=== PATIENT | female | born 1940 | race Caucasian/White ===

== ENCOUNTER 2018-12-05 08:34 | Emergency (ER) | payer MEDICARE, SELFPAY ==
[2018-12-05] VITALS (7 sets, daily range): BP systolic 118–130; BP diastolic 69–90; PULSE 54–58; RESP 17–18; TEMP 36.6–36.8; O2SAT 96–99; BMI 40.2
--- NOTE | 2018-12-05 08:49 | RAD_ITS ---
STUDY: X-RAY - RIGHT FOOT CLINICAL: Female, 78 years old. Soft tissue swelling and erythema overlying the second and third toes. TECHNIQUE: 3 view(s) of the foot. COMPARISON: None. FINDINGS: There is a plantar calcaneal spur. Normal visualized subtalar, talonavicular, calcaneocuboid, tarsal and tarsometatarsal articulations. Normal metatarsi. Normal metatarsophalangeal joint of the great toe. Normal tibial and fibular sesamoid bones. Normal interphalangeal joint of the great toe. Normal phalanges of the great toe. Normal second through fifth metatarsophalangeal joints. Normal interphalangeal joints and phalanges of the lesser toes. Tiny linear metallic densities are seen in the soft tissues overlying the lateral aspect of the distal phalanx of the great toe as well as the medial aspect of the middle phalanx of the third toe. These have the appearance of tiny needles. RAD/Foot min 3 Views IMPRESSION: Soft tissue swelling. Findings in keeping with tiny foreign bodies most likely representing needle tips in the soft tissues overlying the lateral aspect of the distal phalanx of the great toe as well as the medial aspect of the middle phalanx of the third toe. Plantar spur. Electronically Signed: Gary Dutta, at 9:50 EDT , Service support ,
--- NOTE | 2018-12-05 08:50 | ED.VIS.GEN ---
History of Present Illness Chief Complaint: Cellulitis Detail of Chief Complaint: Foot redness Informant: Patient, Family Onset: Yesterday Current Severity: Moderate Maximum Severity: Moderate Narrative: Patient presents with redness and swelling to her right foot. She states she first noted it yesterday. Daughter said she checked her mom's foot last night and had redness of the top of her foot and up onto the lower leg. Swelling and erythema seem to be slightly improved this morning. Daughter does note that there was a pus pocket between her toes that ruptured. Patient is not a diabetic. She denies any recent injury. Past Medical History - Allergies and Home Meds Allergies/Adverse Reactions: Allergies NSAIDS (Non-Steroidal Anti-Inflamma Allergy (Verified 12/05/18 08:38) Anaphylaxis acetaminophen [From Darvocet-N] Adverse Reaction (Verified 12/05/18 08:38) Vomiting meperidine [From Demerol] Adverse Reaction (Verified 12/05/18 08:38) Vomiting propoxyphene [From Darvocet-N] Adverse Reaction (Verified 12/05/18 08:38) Vomiting Primary Care Physician: Dee Arrieta MD [Primary Care Provider] - Prior records reviewed: Yes Past Medical History: - - Reviewed Lives: Alone Review of Systems General: Denies: Chills, Fever Eyes: Denies: Visual changes - bilaterally ENT: Denies: Bilateral ear pain Cardiovascular: Denies: Chest pain Respiratory: Denies: Dyspnea Gastrointestinal: Denies: Abdominal pain, Nausea, Vomiting, Diarrhea Musculoskeletal: Reports: Extremity Pain Skin: Reports: Wounds Neurological: Denies: Headache Hematologic: Denies: Easy bruising, Easy bleeding Allergy: Denies: Uticaria Physical Exam Vital Signs/Narrative: Vital Signs Temp Pulse Resp BP Pulse Ox 12/05/18 08:46 98.2 F 55 L 17 130/90 H 96 12/05/18 08:38 98.2 F 55 L 17 130/90 H 96 Inital Vital Signs reviewed: Yes General: Well nourished, Well developed Head: Normocephalic ENT: Moist mucous membranes Neck: Supple, Nontender Cardiovascular: Regular rate, Regular rhythm Respiratory: No distress, CTA bilaterally Abdomen: Soft, Nontender Extremities: - - Erythema and mild edema to the right third toe with erythema across the top of the foot with mild lymphangitic streaking on the lower leg. There is a small open wound on the medial side of the third toe. No abscesses noted. Good cap refill noted throughout. Skin: - - As above Neurological: Alert, Oriented x3 Psychological: Normal affect Diagnostic/Tx/Re-eval Impressions Foot X-Ray 12/05/18 08:49 IMPRESSION: Soft tissue swelling. Findings in keeping with tiny foreign bodies most likely representing needle tips in the soft tissues overlying the lateral aspect of the distal phalanx of the great toe as well as the medial aspect of the middle phalanx of the third toe. Plantar spur. Electronically Signed: Gary Dutta, at 9:50 EDT , Service support , 12/05/18 08:49 Foot min 3 Views [RAD] Stat Laboratory Results 12/05/18 12/05/18 09:00 09:00 WBC 8.1 RBC 3.75 L Hgb 11.2 L Hct 35.0 L MCV 93.3 MCH 29.9 MCHC 32.0 RDW Std Deviation 45.8 H RDW Coeff of Izabela 13.4 Plt Count 227 MPV 10.1 Immature Gran % (Auto) 0.400 Neut % (Auto) 54.1 Lymph % (Auto) 31.8 Kingfisher % (Auto) 9.7 Eos % (Auto) 3.5 Baso % (Auto) 0.5 Absolute Neuts (auto) 4.4 Absolute Lymphs (auto) 2.56 Nucleated RBC % 0 Sodium 139 Potassium 4.0 Chloride 111 H Carbon Dioxide 22.0 Anion Gap 6 BUN 28 H Creatinine 1.60 H Estim Creat Clear Calc 42.69 Est GFR (MDRD) Af Amer 40 L Est GFR (MDRD) Non-Af 33 L BUN/Creatinine Ratio 17.5 Glucose 101 Calcium 9.3 - Medical Decision Making Patient received a dose of IV clindamycin. Blood work here is unremarkable. Patient's x-rays do show evidence of foreign body in both the great toe and the third toe. I questioned her about this. She does not remember any injury, but daughter states she did recently take sewing. Patient Has Neuropathy. On palpation over the areas of known foreign body, I was able to feel the ends of needles. Secondary to her neuropathy I was able to grasp the end of the needles with a pair of forceps and pull them both out. Wounds were cleansed and dressed. I will speak with podiatry to help arrange close follow-up. ED Disposition - Plan for ED Patient: Disposition: Home or Assisted Living Diagnosis: Cellulitis of right foot, Soft tissues foreign body Instructions: Cellulitis Prescriptions: Amox/Clavulanate Tablet [Augmentin Tablet] 875 mg PO Q12H #20 tablet Referrals: Kwame Dodson DPM [STAFF PHYSICIAN] - 2 Days for wound check
[2018-12-05 09:20] LABS: Absolute Lymphocyte Count 2.56 X10^3/uL (0.83-4.51); Absolute Neutrophil Count 4.4 X10^3/uL (2.0-7.7); Basophil# 0.04 X10^3/uL; Basophil% 0.5 % (0-1); Eosinophil# 0.28 X10^3/uL; Eosinophils% 3.5 % (0-5); Hemoglobin 11.2 g/dL (12.0-15.0); Lymphocyte # 2.56 X10^3/ul (4.0); Lymphocyte % 31.8 % (19-41); Mean Corpuscular Hgb 29.9 pg (27.0-32.0); Mean Corpuscular Volume 93.3 fL (81-99); Mean Platelet Vol. 10.1 fl (6.2-12.0); Monocyte# 0.78 X10^3/uL; Monocyte% 9.7 % (0-10); NRBC Flagged by Analyzer 0 % (0-5); Neutrophil # 4.36 X10^3/uL (2.7-7.7); Neutrophil % 54.1 % (47-70); Platelet Count 227 K/mm3 (150-450); RBC Distribution Width CV 13.4 % (11.6-14.6); RBC Distribution Width SD 45.8 fl (35.1-43.9); Red Blood Count 3.75 M/mm3 (4.2-5.4); White Blood Count 8.1 K/mm3 (4.4-11.0)
[2018-12-05 09:32] LABS: Anion Gap 6 (5-15); BUN 28 mg/dL (7-18); BUN/Creat Ratio 17.5 RATIO (10-20); Calcium,Total 9.3 mg/dL (8.5-10.1); Chloride 111 mmol/L (98-107); EST Glomerular Filtration Rate 33 mL/min (>60); Est Glom Filt Rate - Afr Amer 40 mL/min (>60); Estimated Creatinine Clearance 42.69 ml/min; Glucose 101 mg/dL (74-106); Sodium Level 139 mmol/L (136-145)
== END 2018-12-05 11:36 | disposition home or self-care (01) ==
PROVIDERS: Emergency Provider Emergency Medicine; Family Provider Internal Medicine; PCP Internal Medicine
DX: L03.115 Cellulitis of right lower limb (principal); Z88.5 Allergy status to narcotic agent; Z88.6 Allergy status to analgesic agent
CPT/HCPCS: 73630; 80048; 85025; 99285

== ENCOUNTER → 2018-12-06 17:27 | Outpatient (CLI) | payer MEDICARE, SELFPAY ==
[2018-12-05 08:38] VITALS: BMI 40.2
== END ==
PROVIDERS: Family Provider Internal Medicine; PCP Internal Medicine; Referring Provider Podiatrist; Visit Provider Podiatrist
DX: L03.115 Cellulitis of right lower limb (principal)
CPT/HCPCS: 87070; 87075; 87205

== ENCOUNTER 2020-06-04 16:54 | Outpatient (RCR) | payer MEDICARE, SELFPAY ==
[2018-12-05 08:38] VITALS: BMI 40.2
[2020-06-04] MEDS: COVID-19 VACC, MRNA(PFIZER)/PF 30 MCG/0.3 ML SYRINGE IM (14:14)
[2020-06-25] MEDS: COVID-19 VACC, MRNA(PFIZER)/PF 30 MCG/0.3 ML SYRINGE IM (13:48)
== END 2020-06-04 23:59 ==
LOC: IMMUN 16:54
PROVIDERS: PCP Internal Medicine; Visit Provider Family Medicine
DX: Z23 Encounter for immunization (principal)
CPT/HCPCS: 0001A; 0002A; 91300

== ENCOUNTER → 2020-07-17 07:13 | Outpatient (CLI) | payer MEDICARE, SELFPAY ==
[2018-12-05 08:38] VITALS: BMI 40.2
--- NOTE | 2020-07-17 09:38 | STRESSREP_ITS ---
Stress Test Report Date: 07-17-2020 Procedure: Pharmacologic stress nuclear imaging study Indications: Palpitations; dizziness; CAD; PCI Consent: Per the patient Procedure: The patient underwent pharmacologic (Regadenoson 0.4mg ) evaluation with a peak heart rate of 107 beats per minute (75%predicted maximal heart rate) and a peak blood pressure of 140/72 mmHg. The baseline ECG demonstrated normal sinus rhythm; low voltage QRS. The peak pharmacologic ECG demonstrated no obvious ECG changes. There was an isolated PVC during recovery. There was no complaint of chest discomfort during pharmacologic infusion or recovery. The examination was discontinued secondary to completion of protocol. Impression: 1. Pharmacologic (Regadenoson) evaluation 2. Peak pharmacologic ECG with no obvious ECG changes. 3. There was an isolated PVC during recovery. 4. Nuclear images pending Myocardial perfusion imaging study: Technique: The patient was injected with 11.2 millicuries of technetium 99m Cardiolite and subsequently rest SPECT Cardiolite nuclear imaging was obtained in the horizontal long, vertical long, and short axis views. The patient underwent pharmacologic (Regadenoson) evaluation with a peak heart rate of 107 beats per minute (75% percent predicted maximal heart rate) and a peak blood pressure of 140/72 mmHg. The patient was injected with 33.0 millicuries of technetium 99m Cardiolite and subsequently stress SPECT Cardiolite nuclear imaging was obtained in the horizontal long, vertical long, and short axis views. A gated Cardiolite study at peak stress was obtained. Interpretation: Rest and stress SPECT Cardiolite nuclear imaging status post realignment, normalization, and attenuation correction demonstrate relative uniform tracer uptake and myocardial perfusion appearing within normal limits. There is end systolic thickening and brightening. The gated Cardiolite study demonstrates myocardial thickening and inward wall motion. The reported LVEF is 90%. Impression: 1. Rest and stress SPECT Cardiolite nuclear imaging demonstrate relative uniform tracer uptake and myocardial perfusion appearing within normal limits. 2. The gated Cardiolite study reports an LVEF of 90%. This note was generated with [employer] software. It may contain incorrect words, spelling, and punctuation that were not noted in checking the note before signing.
== END ==
PROVIDERS: PCP Internal Medicine; Referring Provider Internal Medicine; Visit Provider Internal Medicine
DX: Z13.6 Encounter for screening for cardiovascular disorders (principal); I25.10 Atherosclerotic heart disease of native coronary artery without angina pectoris; R00.2 Palpitations; R42 Dizziness and giddiness
CPT/HCPCS: 78452; 93017; A9500; A4216; J2785

== ENCOUNTER 2021-05-01 11:59 | Emergency (ER) | payer MEDICARE, SELFPAY ==
[2021-05-01 12:00] VITALS: PULSE 60; RESP 14; TEMP 36.3; O2SAT 100; BMI 32.9
[2021-05-01 12:01] VITALS: BP 219/86
--- NOTE | 2021-05-01 12:14 | CT_ITS ---
STUDY: CT CERVICAL SPINE WITHOUT CONTRAST REASON FOR EXAM: Female, 81 years old. Pain RADIATION DOSAGE (If Supplied By Facility): CTDIvol = ( 32.13 ) mGy, DLP = ( 583.62 ) mGycm TECHNIQUE: High resolution transaxial imaging was performed without contrast material. Sagittal and coronal images were reconstructed. Individualized dose optimization techniques were used for this CT. COMPARISON: None FINDINGS: Normal craniovertebral junction. There is hypertrophy of the transverse ligament of the atlas with mild posterior displacement of the superior and inferior longitudinal fibers of the cruciform ligament, producing minimal ventral thecal sac flattening, but without cervical cord impingement. There are mild degenerative changes in the anterior atlantoaxial articulation. Normal odontoid process. There is straightening of the normal cervical lordosis. Normal vertebral bodies and posterior osseous elements. C2-3: Normal endplates. Normal disc height and morphology. Normal central canal and intervertebral neuroforamina. C3-4: Moderate bilateral facet hypertrophy produces mild bilateral neural foraminal stenosis. 2 mm of anterolisthesis of C3 on C4. No central spinal stenosis. C4-5: Moderate left facet hypertrophy with ankylosis of facet joint. No spinal stenosis or neural foraminal stenosis. C5-6: Mild right facet hypertrophy. No spinal stenosis or neural foraminal stenosis. C6-7: Normal endplates. Normal disc height and morphology. Normal central canal and intervertebral neuroforamina. C7-T1: Normal endplates. Normal disc height and morphology. Normal central canal and intervertebral neuroforamina. Normal visualized soft tissue structures. CT/Spine Cervical without Contras IMPRESSION: Multilevel degenerative changes, as described above. Electronically Signed: Lobo Frances MD at 13:17 EST ,
--- NOTE | 2021-05-01 12:15 | EDS_ITS ---
HPI History of Present Illness HPI Narrative: Patient with past medical history of coronary artery disease, hypertension, presents with left-sided neck and trapezial pain that she has had since . She presents with her daughter who brought her to the hospital because she has been having dull, achy pain that is worse with movement of her neck. It becomes sharp and stabbing. She states when she tried to change her shirt this morning, she had extreme pain on the left side of her neck. She denies any fevers or chills. No trauma. No chest pain or shortness of breath. No other symptoms. Chief Complaint: [facility] Extremity [facility] Medical History Anxiety High cholesterol Hypertension Home Medications duloxetine 60 mg PO DAILY 05/01/21 [History Last Taken Unknown] lisinopril 10 mg PO DAILY 05/01/21 [History Last Taken Unknown] metoprolol succinate 25 mg PO DAILY 05/01/21 [History Last Taken Unknown] oxycodone-acetaminophen [Percocet] 1 tab PO Q6H PRN 3 Days #12 tab 05/01/21 [Rx Last Taken Unknown] simvastatin 20 mg PO DAILY 05/01/21 [History Last Taken Unknown] Allergy/AdvReac Type Severity Reaction Status Date / Time NSAIDS (Non-Steroidal Allergy Anaphylaxis Verified 05/01/21 12:02 Anti-Inflamma acetaminophen AdvReac Vomiting Verified 05/01/21 12:02 [From Darvocet-N] meperidine [From Demerol] AdvReac Vomiting Verified 05/01/21 12:02 propoxyphene AdvReac Vomiting Verified 05/01/21 12:02 [From Darvocet-N] Surgical History Hx of heart artery stent Social History Smoking Status: Never smoker ROS ROS ED ROS Narrative Constitutional: No fever, no chills. HEENT: No sore throat. Positive left-sided neck pain. No loss of vision. No rhinorrhea. Cardiovascular: No chest pain. No palpitations. No pedal edema. Respiratory: No cough, no shortness of breath. Abdominal: No abdominal pain. No nausea. No vomiting. Genitourinary: No dysuria. No hematuria. Musculoskeletal: Left trapezial to shoulder pain. No arthralgias. Neurologic: No headaches. No dizziness. No lightheadedness. Skin: No rash. No change in color. Psychiatric: No depression. No anxiety. EXAM Physical Exam Narrative Exam Narrative: Afebrile. Vital signs noted. HEENT: Normocephalic. Atraumatic. PERRL, EOMI. Neck soft and supple. No point tenderness or step off. Limited range of motion of neck secondary to pain. Worsening pain with turning head to left. Cardiovascular: Regular rate and rhythm. No murmurs, rubs, or gallops appr eciated. Respiratory: No tachypnea. Lungs clear to auscultation bilaterally. Gastrointestinal: Abdomen soft, nontender, with normoactive bowel sounds. No rebound or guarding. Neurological: Awake. Alert. Nonfocal, nonlateralizing. Able to raise arms above head. Skin: No rash. Normal color. No pallor. Musculoskeletal: No pedal edema. Full range of motion extremities. Const Vital Signs: 05/01/21 12:00 05/01/21 12:01 Temperature 97.4 F L Temperature Source Temporal Pulse Rate 60 Respiratory Rate 14 Blood Pressure 219/86 H Blood Pressure Mean 130 Pulse Ox 100 MDM MDM MDM Narrative Medical decision making narrative: I do feel that the patient may have more of a cervical radiculopathy with some component of spinal stenosis given her age. She was given a tramadol for analgesia. I will obtain CT imaging to look for spinal stenosis. Her CT is consistent with spinal stenosis bilaterally at the C3-C4 level. I do feel this is cervical radiculopathy. Her blood pressure was elevated. She was given an extra dose of her metoprolol orally. I feel she can be discharged safely home with follow-up to her primary care physician. Patient and her daughter states that they have a follow-up appointment next week, and 6 days. She was given a prescription for Percocet for 3 days and was told of the risk of drowsiness, nausea and vomiting, constipation, and addiction. Disposition is discharged home in stable condition. Discharge Plan Triage Chief Complaint: Upper Extremity Injury ED Provider: Delgado Patel Dx/Rx/DC Orders Clinical Impression: Acute neck pain, Spinal stenosis Instructions: Taking Opioid Medicines, ED Neck Pain Prescriptions: New oxycodone-acetaminophen [Percocet] 5-325 mg tablet 1 tab PO Q6H PRN (Reason: pain) 3 Days Qty: 12 RF: 0 No Action simvastatin 20 mg tablet 20 mg PO DAILY RF: 0 lisinopril 10 mg tablet 10 mg PO DAILY RF: 0 metoprolol succinate 25 mg tablet extended release 24 hr 25 mg PO DAILY RF: 0 duloxetine 60 mg capsule,delayed release(DR/EC) 60 mg PO DAILY RF: 0 Primary Care Provider: Dee Arrieta Referrals: Dee Arrieta MD [Primary Care Provider] - As soon as possible Disposition Disposition: Home, Self Care Discharge Date/Time: 05/01/21 14:02
[2021-05-01] MEDS: traMADol 50 MG Tablet PO (12:36)
[2021-05-01 13:45] VITALS: BP 191/73
[2021-05-01] MEDS: Metoprolol(XL)Succ 25 MG Tablet PO (13:58)
== END 2021-05-01 14:02 | disposition home or self-care (01) ==
LOC: ED 12:26
PROVIDERS: Emergency Provider Emergency Medicine; PCP Internal Medicine; Visit Provider Emergency Medicine
DX: M48.02 Spinal stenosis, cervical region (principal); M47.22 Other spondylosis with radiculopathy, cervical region; E78.00 Pure hypercholesterolemia, unspecified; I25.10 Atherosclerotic heart disease of native coronary artery without angina pectoris; I10 Essential (primary) hypertension
CPT/HCPCS: 72125; 99283

== ENCOUNTER 2024-12-30 18:10 | Emergency (ER) | payer MEDICARE, SELFPAY ==
[2024-12-30 18:11] VITALS: BP 152/79; PULSE 65; RESP 16; TEMP 36.5; O2SAT 98
[2024-12-30 22:54] VITALS: BP 148/70; PULSE 70; O2SAT 100; BMI 58.2
[2024-12-30] MEDS: HYDROcodone Bitartrate/Apap 5/325 Tablet PO (23:10)
--- NOTE | 2024-12-30 23:12 | RAD_ITS ---
PROCEDURE: LUMBAR SPINE 2 OR 3 VIEWS 12/30/2024 REASON FOR EXAM: INJURY/PAIN TECHNIQUE: Procedure Code: RADSPLL Modality: DX Procedure: LUMBAR SPINE 2 OR 3 VIEWS FINDINGS: No evidence of acute fracture or dislocation. [id number] degenerative changes of the visualized spine. Vertebral body heights are maintained. Dextroscoliosis. RAD/Lumbar Spine 2 or 3 Views IMPRESSION: No acute osseous abnormalities. Spondylosis. Scoliosis. Reading Location: [id number]
[2024-12-31 00:02] VITALS: BP 148/70; PULSE 70; RESP 16; TEMP 37.1; O2SAT 100
--- NOTE | 2024-12-31 00:17 | ED.VIS.LOWEX ---
HPI History of Present Illness HPI Narrative: Patient presents with pain down her right lower extremity that became worse today. Patient states that her pain is worse with any weightbearing. Patient states she is having difficulty standing and ambulating due to the pain. Patient states she has a history of neuropathy in her right leg and admits to chronic paresthesias. Patient denies any weakness. Patient has not been seen to be helping with the pain. Patient denies any trauma or injury. Patient does admit to some low back pain. Patient denies any bowel or bladder changes. Patient denies any saddle anesthesia. Chief Complaint: Lower Extremity Injury Informant: patient and family Onset/Context/Timing Onset: Days Context: Gradual Onset Timing: Continuous Quality of Pain: Dull Location: Low back and right lower extremity Worsened by: Weightbearing and ambulation Relieved by: Nothing Associated Symptoms Associated Symptoms: Positive for Parasthesia (Chronic); Negative for Weakness or Loss of Funtion [facility] Medical History Anxiety High cholesterol Hypertension Home Medications ?Medication ?Instructions ?Recorded ?Last Taken ?Type duloxetine 60 mg capsule,delayed 60 mg PO DAILY 05/01/21 Unknown History release lisinopril 10 mg tablet 10 mg PO DAILY 05/01/21 Unknown History metoprolol succinate 25 mg 25 mg PO DAILY 05/01/21 Unknown History tablet,extended release 24 hr simvastatin 20 mg tablet 20 mg PO DAILY 05/01/21 Unknown History cyclobenzaprine 10 mg tablet 10 mg PO QHS PRN PRN Muscle Spasm 12/31/24 Unknown Rx #7 TABLETS oxycodone-acetaminophen 5 mg-325 1 tab PO Q6H PRN PRN Pain 3 days 12/31/24 Unknown Rx mg tablet #12 TABLETS Allergy/AdvReac Type Severity Reaction Status Date / Time NSAIDS (Non-Steroidal Allergy Anaphylaxis Verified 12/30/24 18:13 Anti-Inflamma acetaminophen (From AdvReac Vomiting Verified 12/30/24 18:13 Darvocet-N) meperidine (From Demerol) AdvReac Vomiting Verified 12/30/24 18:13 propoxyphene (From AdvReac Vomiting Verified 12/30/24 18:13 Darvocet-N) Surgical History Hx of heart artery stent Social History Smoking Status: Never smoker ROS ROS ED Constitutional Constitutional ED: Denies chills or fever(s) Eyes Eyes: Denies blurry vision or change in vision ENT ENT ED: Denies rhinorrhea or sore throat Cardiovascular Cardiovascular: Denies chest pain or palpitations Respiratory/Chest Respiratory/Chest: Denies cough or dyspnea Gastrointestinal Gastrointestinal: Denies nausea or vomiting Genitourinary Genitourinary ED: Denies dysuria or hematuria Musculoskeletal Musculoskeletal: Reports back pain; Denies neck pain Integumentary Denies abscess or rash Neurologic Neurologic: Denies headache(s) or weakness Allergic/Immunologic Allergic/Immunologic ED: Denies mouth swelling or urticaria EXAM Physical Exam Const Vital Signs: 12/30/24 18:11 12/30/24 22:54 12/31/24 00:02 Temperature 97.7 F L 98.8 F Temperature Source Temporal Pulse Rate 65 70 70 Respiratory Rate 16 16 Blood Pressure 152/79 H 148/70 H 148/70 H Blood Pressure Mean 103 96 96 Pulse Ox 98 100 100 Oxygen Delivery Method Room Air Positive well nourished and well developed Constitutional Narrative: BMI is 58.3. General Appearance ED: well developed and NAD HEENT Reports moist mucous membranes Neck full ROM Back/Spine Back/Spine Narrative: There is mild tenderness over the right lower lumbar paraspinal muscles and sacroiliac area. There is tenderness of the sciatic notch. There is reproducible tenderness pushing on the sciatic nerve. Strength is 5/5 bilaterally in the lower extremities. There are no sensory deficits noted. Deep tendon reflexes are 2/4 bilateral lower extremities. Straight leg raises were negative bilaterally. Lumbar Spine / Lower Back: straight leg raise negative bilaterally Extremity normal to inspection and full ROM Neuro oriented x3, CN's II-XII intact bilaterally, moves all extremities and no sensory deficits noted Sensorium / Orientation: alert Motor Exam: strength 5/5 throughout Deep Tendon Reflexes: Rt Patellar (L4): 2+, Lt Patellar (L4): 2+, Rt Ankle (S1): 2+ and Lt Ankle (S1): 2+ Deep Tendon Reflexes Back: Rt Patellar (L4): 2+, Lt Patellar (L4): 2+, Rt Ankle (S1): 2+ and Lt Ankle (S1): 2+ Psych mental status grossly normal MDM MDM MDM Narrative Medical decision making narrative: Differential diagnosis includes sciatica, lumbosacral strain, lumbar compression fracture, degenerative arthritis, and hip pain. X-rays of the lumbar spine will be obtained to assess for degenerative arthritis, spondylolisthesis, and occult fracture. Radiography Diagnostic Testing: Clinical Impression(s) from Imaging Studies Lumbar Spine X-Ray 12/30/24 23:12 IMPRESSION: No acute osseous abnormalities. Spondylosis. Scoliosis. Reading Location: [address] X-rays of the lumbar spine were obtained. There are 3 views. On my independent interpretation, there is no acute fracture or spondylolisthesis. There is mild scoliosis noted. There are degenerative changes noted. Radiologist also interpreted the x-rays and agrees. Treatment and Re-Evaluation Narrative: Patient was given a dose of [place] here. Patient was able to ambulate here in the emergency department. Patient states she has a walker at home. Patient was instructed to use this. Patient was given a prescription for a short course of cyclobenzaprine to take at bedtime and a prescription for a short course of Percocet. Patient was instructed to follow-up with her primary care physician in 3 to 5 days for further evaluation. Patient was instructed to return if worse in any way. Patient understood and was agreeable with the plan. All questions were answered. Discharge Plan Triage Chief Complaint: Lower Extremity Injury ED Provider: Tom Hi Dx/Rx/DC Orders Clinical Impression: Sciatica of right side, Spinal stenosis Instructions: ED Sciatica Prescriptions: New oxycodone-acetaminophen 5-325 mg tablet 1 tab PO Q6H PRN PRN (Reason: Pain) 3 Days Qty: 12 0RF cyclobenzaprine 10 mg tablet 10 mg PO QHS PRN PRN (Reason: Muscle Spasm) Qty: 7 0RF Discontinued oxycodone-acetaminophen [Percocet] 5-325 mg tablet 1 tab PO Q6H PRN (Reason: pain) 3 Days Qty: 12 0RF No Action simvastatin 20 mg tablet 20 mg PO DAILY Patient Comments: TAKE 1 TABLET BY MOUTH DAILY AT BEDTIME. FOR CHOLESTEROL lisinopril 10 mg tablet 10 mg PO DAILY Patient Comments: TAKE 1 TABLET BY MOUTH EVERY DAY metoprolol succinate 25 mg tablet extended release 24 hr 25 mg PO DAILY Patient Comments: TAKE 1 TABLET BY MOUTH EVERYDAY AT BEDTIME duloxetine 60 mg capsule,delayed release(DR/EC) 60 mg PO DAILY Patient Comments: TAKE 1 CAPSULE BY MOUTH EVERY DAY Primary Care Provider: Dee Arrieta Referrals: Dee Arrieta MD [Primary Care Provider, Internal Medicine] - 3-5 Days Print Language: Occitan Disposition Disposition: Home, Self Care Discharge Date/Time: 12/31/24 00:30
== END 2024-12-31 00:30 | disposition home or self-care (01) ==
PROVIDERS: Emergency Provider Emergency Medicine; PCP Internal Medicine; Visit Provider Emergency Medicine
DX: M54.31 Sciatica, right side (principal); M48.00 Spinal stenosis, site unspecified; E78.00 Pure hypercholesterolemia, unspecified; I10 Essential (primary) hypertension
CPT/HCPCS: 72100; 99282